=== PATIENT | female | born 1970 | race Caucasian/White ===

== ENCOUNTER 2018-11-26 16:22 | Emergency (ER) | payer SELFPAY ==
[2018-11-26 16:36] VITALS: BP 138/72
[2018-11-26] MEDS ORDERED: DEXAMETHASONE 10 MG/ML VIAL PO STA (17:09)
[2018-11-26] MEDS ORDERED: AMOXICILLIN 250 MG CAPSULE PO STA (17:09)
--- NOTE | 2018-11-26 17:13 | ED Physician Documentation ---
PD HPI URI - Stated complaint Stated Complaint: THROAT PX/FEVER/BROWN - Chief complaint Chief Complaint: Heent - Additional information Additional information: 48-year-old female presents the emergency department with increasing symptoms over the past several days. The patient's symptoms started off with fever, chills, body aches, sore throat and a scratchy voice which has progressively worsened. The patient now reports significant right ear pain. The patient reports feeling generally unwell. The patient does get improvement with antipyretics. No other associated symptoms. Review of Systems Constitutional: reports: Fever, Chills, Fatigue Eyes: denies: Discharge Ears: reports: Ear pain Nose: reports: Rhinorrhea / runny nose, Congestion Throat: reports: Sore throat Cardiac: denies: Chest pain / pressure Respiratory: reports: Cough. denies: Dyspnea GI: denies: Abdominal Pain : denies: Dysuria Skin: denies: Rash Musculoskeletal: denies: Neck pain Neurologic: denies: Generalized weakness Psychiatric: denies: Depressed PD PAST MEDICAL HISTORY - Present Medications Home Medications: Ambulatory Orders Medication Instructions Recorded Confirmed Amoxicillin 875 mg PO BID #20 tablet 11/26/18 - Allergies Allergies/Adverse Reactions: Allergies Allergy/AdvReac Type Severity Reaction Status Date / Time No Known Drug Allergies Allergy Verified 11/26/18 16:34 PD ED PE NORMAL - General General: Alert and oriented X 3, No acute distress - HEENT HEENT: Atraumatic, PERRL, EOMI, Moist mucous membranes. No: Ears normal (The patient's right ear has an acute effusion, the tympanic membrane is erythematous and there is a mild bulge. The external canal is within normal limits. The left ear is within normal limits) - Neck Neck: Supple, no meningeal sign, No adenopathy - Cardiac Cardiac: RRR, Strong equal pulses - Respiratory Respiratory: No respiratory distress, Clear bilaterally - Derm Derm: Normal color - Extremities Extremities: No deformity - Neuro Neuro: Alert and oriented X 3, Normal speech - Psych Psych: Normal affect Results - Vitals Vitals: Vital Signs - 24 hr 11/26/18 16:31 Temperature 36.4 C L Heart Rate 67 Respiratory 14 Rate Blood Pressure 138/72 H O2 Saturation 99 Oxygen O2 Source Room air - Labs Labs: Laboratory Tests 11/26/18 16:39 Influenza A (Rapid) Negative Influenza B (Rapid) Negative PD MEDICAL DECISION MAKING - ED course ED course: The majority the patient's symptoms most likely represent a viral process, on physical exam there is evidence of an acute otitis media which appears to be a secondary superimposed bacterial infection. The patient will be put on a course of antibiotics given the secondary infection. The patient currently appears appropriate for discharge and ongoing outpatient management. I discussed warning signs and recommended returning to the emergency department immediately for any worsening or any concerns. Departure - Departure Disposition: 01 Home, Self Care Clinical Impression: Influenza-like illness AOM (acute otitis media) Qualifiers: Otitis media type: suppurative Laterality: unspecified laterality Recurrence: non-recurrent Spontaneous tympanic membrane rupture: without spontaneous rupture Qualified Code(s): H66.009 - Acute suppurative otitis media without spontaneous rupture of ear drum, unspecified ear Condition: Good Instructions: Cold Flu , ED Otitis Media Acute Adult Follow-Up: [facility] [Provider Group] - Within 1 week Prescriptions: Amoxicillin 875 mg PO BID #20 tablet Print Language: Australian Comments: Please follow-up with primary care for recheck and reevaluation
[2018-11-26] MEDS ORDERED: CHERRY SYRUP 10 ML UDC PO ONE (17:18)
== END 2018-11-26 17:20 | disposition home or self-care (01) ==
LOC: ED 16:22
DX: J11.1 Influenza due to unidentified influenza virus with other respiratory manifestations (principal); H66.009 Acute suppurative otitis media without spontaneous rupture of ear drum, unspecified ear
CPT/HCPCS: 87275; 87276; 99283; A9270